=== PATIENT | female | born 1935 | race Caucasian/White ===

== ENCOUNTER 2018-05-22 10:39 | Outpatient (CLI) | payer MEDICARE, OTHER ==
[~2018-05-22] VITALS: Ht 167.6 cm; Wt 62.3 kg
[2018-05-22 11:40] VITALS: BP 191/73; Ht 167.6 cm; Wt 62.3 kg
== END 2018-05-22 11:54 | disposition home or self-care (01) ==
LOC: D.OPS 10:39
DX: M81.0 Age-related osteoporosis without current pathological fracture (principal); Z01.812 Encounter for preprocedural laboratory examination

== ENCOUNTER 2018-12-11 10:52 | Outpatient (CLI) | payer MEDICARE, OTHER ==
[~2018-12-11] VITALS: Ht 167.6 cm; Wt 60.0 kg
[2018-12-11 11:34] VITALS: BP 171/67; Ht 167.6 cm; Wt 60.0 kg
--- NOTE | 2018-12-11 11:56 | NUR ---
INJECTION GIVEN TO LEFT ARM.
== END 2018-12-11 11:56 | disposition home or self-care (01) ==
LOC: D.OPS 10:52
PROVIDERS: ATTEND Family Medicine
DX: M81.0 Age-related osteoporosis without current pathological fracture (principal)

== ENCOUNTER → 2019-05-28 11:51 | Outpatient (CLI) | payer MEDICARE, OTHER ==
[~2019-05-28] VITALS: Ht 167.6 cm; Wt 60.9 kg
[2019-05-28 12:09] VITALS: BP 188/74; Ht 167.6 cm; Wt 60.9 kg
== END | disposition home or self-care (01) ==
LOC: D.OPS 11:51
PROVIDERS: ATTEND Family Medicine
DX: M81.0 Age-related osteoporosis without current pathological fracture (principal)

== ENCOUNTER 2020-01-07 09:44 | Outpatient (CLI) | payer MEDICARE, OTHER ==
[~2020-01-07] VITALS: Ht 167.6 cm; Wt 62.7 kg
[2020-01-07 10:35] VITALS: BP 154/71; Ht 167.6 cm; Wt 62.7 kg
== END 2020-01-07 11:15 | disposition home or self-care (01) ==
LOC: D.OPS 09:44
PROVIDERS: ATTEND Family Medicine
DX: M81.0 Age-related osteoporosis without current pathological fracture (principal)

== ENCOUNTER → 2020-05-05 09:41 | Outpatient (CLI) | payer MEDICARE, OTHER ==
[2020-01-07 10:35] VITALS: BMI 22.3
== END | disposition home or self-care (01) ==
LOC: D.RAD 09:41
PROVIDERS: ATTEND Nurse Practitioner Family
DX: M25.512 Pain in left shoulder (principal)

== ENCOUNTER 2020-12-20 12:12 | Emergency (ER) | payer MEDICARE, OTHER ==
[~2020-12-20] VITALS: Ht 167.6 cm; Wt 61.8 kg
[2020-12-20 12:15] VITALS: Ht 167.6 cm; Wt 61.8 kg
[2020-12-20] MEDS ORDERED: SYNTHROID100 MCG PO (12:16)
[2020-12-20] MEDS ORDERED: DETROL LA4 MG PO (12:16)
[2020-12-20] MEDS ORDERED: ATIVAN2 MG PO (12:17)
[2020-12-20 12:56] LABS: BASOPHILS 0.7 % (0-2); EOSINOPHILS 1.9 % (0-7); HEMATOCRIT 41.2 % (36.0-48.0); HEMOGLOBIN 13.4 g/dL (12-16); LYMPHOCYTES 25.1 % (15-50); MCH 29.2 pg (26.0-34.0); MCHC 32.6 g/dL (31.0-37.0); MCV 89.6 fL (80.0-100.0); MEAN PLATELET VOLUME 11.6 fL (7.4-10.4); MONOCYTES 6.9 % (2-11); NEUTROPHILS 65.4 % (40-80); PLATELET COUNT 173 10x3/uL (130-400); RBC 4.59 10x6/uL (4.00-5.40); RDW 12.6 % (11.5-14.5)
[2020-12-20 13:04] LABS: CALC OSMOLALITY 278 mosm/kg (275-300); CALCIUM 9.2 mg/dL (8.5-10.1); CARBON DIOXIDE 28.7 mmol/L (21.0-32.0); CHLORIDE - SERUM 104 mmol/L (98-107); CREATININE - SERUM 0.7 mg/dL (0.6-1.3); GLUCOSE 94 mg/dL (74-106); SODIUM 139 mmol/L (136-145); UREA NITROGEN 15 mg/dL (7-18); eGFR NON AFRICAN AMERICAN 85 mL/min (90-120)
[2020-12-20 13:09] LABS: APTT 36.6 SECONDS (22.8-39.4); INR 1.16 (0.85-1.17); PROTIME 13.8 SECONDS (11.6-15.0)
[2020-12-20 13:15] LABS: BILIRUBIN NEGATIVE (NEGATIVE); KETONE NEGATIVE (NEGATIVE); NITRITE NEGATIVE (NEGATIVE); UROBILINOGEN NORMAL mg/dL (< 2)
[2020-12-20 13:16] LABS: BACTERIA RARE HPF (NONE SEEN); SQUAMOUS EPITHELIAL 0-5 HPF (0-4); WHITE CELLS - URINE NONE SEEN HPF (0-4)
[2020-12-20 13:19] LABS: ALBUMIN 3.8 g/dL (3.4-5.0); ALKALINE PHOSPHATASE 131 U/L (30-120); ALT (SGPT) 46 U/L (10-68); BILIRUBIN - TOTAL 0.35 mg/dL (0.2-1.3); CKMB 0.4 U/L (0.0-3.6); CREATINE KINASE 42 UL (21-215); MAGNESIUM - SERUM 2.1 mg/dL (1.8-2.4); PROTEIN - SERUM 7.2 g/dL (6.4-8.2); TROPONIN-I < 0.017 ng/mL (0.000-0.060)
[2020-12-20] MEDS ORDERED: DULCOLAX10 MG/SUPP RC (15:31)
[2020-12-20] MEDS ORDERED: MACROBID100 MG PO (15:31)
[2020-12-20 16:10] VITALS: BP 134/50
== END 2020-12-20 16:11 | disposition home or self-care (01) ==
LOC: D.ER 12:12
PROVIDERS: Family Medicine
DX: N39.0 Urinary tract infection, site not specified (principal); K59.00 Constipation, unspecified; I10 Essential (primary) hypertension; K21.9 Gastro-esophageal reflux disease without esophagitis; M54.5 Low back pain